=== PATIENT | male | born 1990 | race Asian ===

== ENCOUNTER 2017-08-15 00:23 | Emergency (ER) | payer SELFPAY ==
[2017-08-15 01:06] VITALS: BP 144/91; PULSE 113; TEMP 98.4; BMI 24.4
[2017-08-15] MEDS ORDERED: ACETAMINOPHEN 325 MG TABLET (FP) ONE (01:17)
[2017-08-15] MEDS ORDERED: ACETAMINOPHEN 325 MG TABLET (FP) PO ONE (01:18)
[2017-08-15] MEDS ORDERED: AMOX TR/POT CLAV 875MG/125MG TABLETS (FP) PO ONE (01:23)
--- NOTE | 2017-08-15 01:29 | PDOC ---
History of Present Illness - General History Source: Patient Exam Limitations: No Limitations <Waldo Lynn - Last Filed: 08/15/17 01:36> - General History Source: Patient Exam Limitations: No Limitations - History of Present Illness Initial Comments: 08/15/17 01:41 The patient is a 27 year old male, with no significant past medical history, who presents to the emergency department with, right sided facial swelling and tightness. As per patient he was at work when his boss noticed swelling to his face. He reports going to the bathroom and realized his symptoms. He tried smiling and felt a tingle of pain. He reports pain when touching the affected area. He denies any recent dental work. He denies any recent fevers, chills, headache or dizziness. He denies any recent nausea, vomit, diarrhea or constipation. He denies any recent chest pain or shortness of breath. He denies any recent dysuria, frequency, urgency or hematuria. Allergies: NKA Past surgical history: None reported. Social History: Nonsmoker. Denies EtOH use and recreational drug use. Primary Care Physician: Dr. Strong <Solomon Nelson - Last Filed: 08/15/17 01:45> - General Chief Complaint: Edema Stated Complaint: SWELLING Time Seen by Provider: 08/15/17 01:15 Past History - Suicide/Smoking/Psychosocial Hx Smoking History: Never smoked <Waldo Lynn - Last Filed: 08/15/17 01:36> <Solomon Nelson - Last Filed: 08/15/17 01:45> - Past Medical History Allergies/Adverse Reactions: Allergies Allergy/AdvReac Type Severity Reaction Status Date / Time No Known Allergies Allergy Verified 08/15/17 01:00 Home Medications: Ambulatory Orders Amoxicillin/Potassium Clav [Augmentin 875-125 Tablet] 1 each PO BID #14 tablet 08/15/17 Ibuprofen [Motrin -] 600 mg PO QID PRN #28 tablet 08/15/17 Review of Systems - Review of Systems Able to Perform ROS?: Yes Comments:: 08/15/17 01:42 GENERAL/CONSTITUTIONAL: No fever or chills. No weakness. +HEAD, EYES, EARS, NOSE AND THROAT: Swelling and tightness to the right cheek. No change in vision. No ear pain or discharge. No sore throat. CARDIOVASCULAR: No chest pain or shortness of breath. RESPIRATORY: No cough, wheezing, or hemoptysis. GASTROINTESTINAL: No nausea, vomiting, diarrhea or constipation. GENITOURINARY: No dysuria, frequency, or change in urination. MUSCULOSKELETAL: No joint or muscle swelling or pain. No neck or back pain. SKIN: No rash NEUROLOGIC: No headache, vertigo, loss of consciousness, or change in strength/ sensation. ENDOCRINE: No increased thirst. No abnormal weight change. HEMATOLOGIC/LYMPHATIC: No anemia, easy bleeding, or history of blood clots. ALLERGIC/IMMUNOLOGIC: No hives or skin allergy. All Other Systems: Reviewed and Negative <Solomon Nelson - Last Filed: 08/15/17 01:45> *Physical Exam - Vital Signs Last Vital Signs Temp Pulse Resp BP Pulse Ox 98.4 F 113 H 16 144/91 97 08/15/17 01:00 08/15/17 01:00 08/15/17 01:00 08/15/17 01:00 08/15/17 01:00 <Waldo Lynn - Last Filed: 08/15/17 01:36> - Vital Signs Last Vital Signs Temp Pulse Resp BP Pulse Ox 98.4 F 113 H 16 144/91 97 08/15/17 01:00 08/15/17 01:00 08/15/17 01:00 08/15/17 01:00 08/15/17 01:00 - Physical Exam Comments: 08/15/17 01:44 GENERAL: Awake, alert, and fully oriented, in no acute distress +HEAD: Mild induration to the right maxillary area of the face. Tenderness to palpation. No fluctuance. No recent dental work. No tenderness to the teeth. No erythema. EYES: PERRLA, EOMI, sclera anicteric, conjunctiva clear ENT: Auricles normal inspection, hearing grossly normal, nares patent, oropharynx clear without exudates. Moist mucosa NECK: Normal ROM, supple, no lymphadenopathy, JVD, or masses LUNGS: Breath sounds equal, clear to auscultation bilaterally. No wheezes, and no crackles HEART: Regular rate and rhythm, normal S1 and S2, no murmurs, rubs or gallops ABDOMEN: Soft, nontender, normoactive bowel sounds. No guarding, no rebound. No masses EXTREMITIES: Normal range of motion, no edema. No clubbing or cyanosis. No cords, erythema, or tenderness NEUROLOGICAL: Cranial nerves II through XII grossly intact. Normal speech, normal gait SKIN: Warm, Dry, normal turgor, no rashes or lesions noted. <Solomon Nelson - Last Filed: 08/15/17 01:45> ED Treatment Course - Medications Given in the ED: ED Medications Discontinued Medications Generic Name Dose Route Start Last Admin Trade Name Freq PRN Reason Stop Dose Admin Acetaminophen 650 mg 08/15/17 01:18 08/15/17 01:18 Tylenol - PO 08/15/17 01:19 650 mg NOW ONE Administration <Waldo Lynn - Last Filed: 08/15/17 01:36> - Medications Given in the ED: ED Medications Discontinued Medications Generic Name Dose Route Start Last Admin Trade Name Freq PRN Reason Stop Dose Admin Acetaminophen 650 mg 08/15/17 01:18 08/15/17 01:18 Tylenol - PO 08/15/17 01:19 650 mg NOW ONE Administration <Solomon Nelson - Last Filed: 08/15/17 01:45> Medical Decision Making - Medical Decision Making 08/15/17 01:24 A portion of this note was documented by scribe services under my direction. I have reviewed the details of the note, within reason, and agree with the documentation with the following case summary and management plan written by me. Patient treated in the ED. Nursing notes are reviewed and incorporated into the medical decision-making. Vital signs reviewed. Peripheral IV access obtained by the nurse, laboratory studies are drawn and sent, reviewed and interpreted by myself. Vital Signs Temp Pulse Resp BP Pulse Ox 98.4 F 113 H 16 144/91 97 08/15/17 01:00 08/15/17 01:00 08/15/17 01:00 08/15/17 01:00 08/15/17 01:00 27 year old M c/ no pmh p/w R mild facial induration. 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 Pt's boss noted that the patient had some mild R sided facial swelling at the maxillary area. No recent dental work or fevers. Pt has been scratching his eyes lately 2/2 seasonal allergies. The patient has a very mild celluitis of the R maxillary area. Nontoxic appearing and does not involve airway. No associated dental infections. Will prescribe augmentin. Advised patient that if symptoms worsen or swelling worsen, the patient should return to the ER. Pt verbalizes understanding and agrees with plan. <Waldo Lynn - Last Filed: 08/15/17 01:36> *DC/Admit/Observation/Transfer - Discharge Dispostion Decision to Admit order: No <Waldo Lynn - Last Filed: 08/15/17 01:36> - Attestations Scribe Attestion: 08/15/17 01:44 Documentation prepared by Solomon Nelson, acting as electromedical equipment technician for Waldo Lynn MD. <Solomon Nelson - Last Filed: 08/15/17 01:45> Diagnosis at time of Disposition: Cellulitis Qualifiers: Site of cellulitis: unspecified site Qualified Code(s): L03.90 - Cellulitis, unspecified - Discharge Dispostion Disposition: HOME Condition at time of disposition: Stable - Prescriptions Prescriptions: Amoxicillin/Potassium Clav [Augmentin 875-125 Tablet] 1 each PO BID #14 tablet Ibuprofen [Motrin -] 600 mg PO QID PRN #28 tablet PRN Reason: Pain - Referrals Referrals: Pop Strong [Primary Care Provider] - - Patient Instructions Printed Discharge Instructions: DI for Cellulitis -- Adult Additional Instructions: Please take the antibiotics as prescribed. If the swelling worsens dramatically, please return to the ER immediately for a follow up. Otherwise, please follow up with your doctor. It is important that you complete your antibiotics as this will make you feel better. You may take 600 mg ibuprofen every 6 hours as needed for pain. - Post Discharge Activity Forms/Work/School Notes: Back to Work
[2017-08-15] MEDS ORDERED: AMOX TR/POT CLAV 875MG/125MG TABLETS (FP) ONE (01:40)
== END 2017-08-15 01:45 | disposition home or self-care (01) ==
LOC: JER 00:23
DX: L03.211 Cellulitis of face (principal); J30.2 Other seasonal allergic rhinitis
CPT/HCPCS: 99281-25